=== PATIENT | female | born 2000 | race Caucasian/White ===

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

== ENCOUNTER 2022-12-04 09:42 | Emergency (ER) | payer BC ==
[~2022-12-04] VITALS: Ht 172 cm; Wt 62.0 kg
[~2022-12-04 09:42] MED LIST: FEXO-14 PO; HYOS0.1283 SL; ONDA4TAB11 SL; TOPI15CA6 PO
[2022-12-04 10:47] LABS: BILIRUBIN,URINE NEGATIVE (NEGATIVE); CLARITY,URINE CLEAR; GLUCOSE, URINE (UA) NEGATIVE (NEGATIVE); KETONES,URINE NEGATIVE (NEGATIVE); LEUKOCYTE ESTERASE ,URINE NEGATIVE (NEGATIVE); NITRITE,URINE NEGATIVE (NEGATIVE); PH,URINE 7.5 (5-9); PROTEIN,URINE NEGATIVE (NEGATIVE)
[2022-12-04 10:55] LABS: COLOR,URINE PALE YELLOW; WBC,URINE 0-2 /HPF
[2022-12-04 10:56] LABS: BACTERIA,URINE FEW /HPF
--- NOTE | 2022-12-04 12:04 | ED Abdominal Pain ---
General Chief Complaint: Abdominal/GI Problems Stated Complaint: KIDNEY STONES Nursing Triage Note: ARRIVED VIA AMB TO TRIAGE WITH COMPLAINTS OF RIGHT SIDED ABD PAIN X1 WEEK. HX OF KIDNEY STONES. STATES HER PRIMARY IN [place] STARTED HER ON FLOMAX. SHE IS OUT OF FLOMAX AT THIS TIME AND STILL HAVING PAIN. CALLED HER PRIMARY WHO TOLD HER TO COME TO THE ER. Source of Information: Patient Exam Limitations: No Limitations (WICHO ZEPEDA APRN) History of Present Illness Date Seen by Provider: Dec 04, 2022 Time Seen by Provider: 11:50 Initial Comments 22-year-old female presents to the ED with complaints right lower quadrant abdominal pain and bilateral lower back pain for the last week. States she was diagnosed with kidney stones in September, thinks she has another kidney stone. Complains of cramping abdominal pain with urination and nausea, especially with eating. Denies fevers, diarrhea, dysuria. Last menstrual cycle was 11/08. Denies vaginal bleeding or discharge. She has had an appendectomy. Past medical history includes POTS, factor V Leiden deficiency, asthma, migraines, functional digestive disorder. Currently takes dicyclomine, FD virgilio, IB virgilio, amitriptyline, fludrocortisone, mefenamic acid, hyoscyamine, Zofran, Brittney, Topamax, albuterol inhaler. (WICHO ZEPEDA APRN) Allergies and Home Medications Allergies Coded Allergies: Sulfa (Sulfonamide Antibiotics) (Verified Allergy, Unknown, 08/06/21) clindamycin (Verified Allergy, Unknown, 08/06/21) Patient Home Medication List Home Medication List Reviewed: Yes (WICHO ZEPEDA APRN) Fexofenadine HCl (Brittney Allergy) 60 Mg Tablet, 60 MG PO, (Reported) Entered as Reported by: AGGIE HOBSON on 08/06/21 0955 Hyoscyamine Sulfate (Levsin-Sl) 0.125 Mg Tab.subl, 1-2 TAB SL Q4H PRN for CRAMPS Prescribed by: ADIN FORD on 08/06/21 1239 Ondansetron (Ondansetron Odt) 4 Mg Tab.rapdis, 4 MG SL Q4H PRN for NAUSEA/VOMITING Prescribed by: ADIN FORD on 08/06/21 1239 Topiramate (Topamax) 15 Mg Cap.sprink, 15 MG PO, (Reported) Entered as Reported by: AGGIE HOBSON on 08/06/21 0955 Review of Systems Review of Systems Constitutional: see HPI (WICHO ZEPEDA APRN) Past Wiwypmx-Xtjjzc-Pygkjr Hx Patient Social History Tobacco Use?: No Substance use?: No Alcohol Use?: No (WICHO ZEPEDA APRN) Immunizations Up To Date First/Initial COVID19 Vaccinat: N/A (WICHO ZEPEDA APRN) Past Medical History Surgery/Hospitalization HX: PMH: POTS, FACTOR 5 LIDEN, ASTHMA, MIGRAINES SX: APPY, TONSILS/ADENOIDS, WISDOM TEETH, SINUS SX Last Menstrual Period: Nov 08, 2022 (WICHO ZEPEDA APRN) Physical Exam Vital Signs Vital Signs - First Documented 12/04/22 12/04/22 10:05 16:40 Temp 36.9 Pulse 96 Resp 16 B/P (MAP) 112/81 Pulse Ox 100 O2 Delivery Room Air (YOLY,CALOS K DO) Vital Signs Capillary Refill : Less Than 3 Seconds (WICHO ZEPEDA APRN) Height/Weight/BMI Height: '" Weight: lbs. oz. kg; 20.00 BMI Method: General Appearance: WD/WN, no apparent distress Neck: supple, normal inspection Respiratory: lungs clear, normal breath sounds, no respiratory distress, no accessory muscle use Cardiovascular: regular rate, rhythm, no edema, no gallop, no JVD, no murmur Gastrointestinal: normal bowel sounds, soft, tenderness (Bilateral lower quadrant) Extremities: normal range of motion, normal inspection Neurologic/Psychiatric: alert, normal mood/affect, oriented x 3 Skin: normal color, warm/dry (WICHO ZEPEDA APRN) Progress/Results/Core Measures Results/Orders Lab Results Laboratory Tests Test 12/04/22 10:19 12/04/22 12:10 Range/Units Urine Color PALE YELLOW Urine Clarity CLEAR Urine pH 7.5 5-9 Urine Specific [place] <=1.005 1.016-1.022 Urine Protein NEGATIVE NEGATIVE Urine Glucose (UA) NEGATIVE NEGATIVE Urine Ketones NEGATIVE NEGATIVE Urine Nitrite NEGATIVE NEGATIVE Urine Bilirubin NEGATIVE NEGATIVE Urine Urobilinogen 0.2 < = 1.0 MG/DL Urine Leukocyte Esterase NEGATIVE NEGATIVE Urine RBC (Auto) NEGATIVE NEGATIVE Urine RBC NONE /HPF Urine WBC 0-2 /HPF Urine Squamous Epithelial Cells 5-10 /HPF Urine Crystals NONE /LPF Urine Bacteria FEW H /HPF Urine Casts NONE /LPF Urine Mucus NEGATIVE /LPF Urine Culture Indicated NO White Blood Count 7.3 4.3-11.0 10^3/uL Red Blood Count 4.99 3.80-5.11 10^6/uL Hemoglobin 15.3 11.5-16.0 g/dL Hematocrit 43 35-52 % Mean Corpuscular Volume 87 80-99 fL Mean Corpuscular Hemoglobin 31 25-34 pg Mean Corpuscular Hemoglobin Concent 35 32-36 g/dL Red Cell Distribution Width 12.4 10.0-14.5 % Platelet Count 296 130-400 10^3/uL Mean Platelet Volume 9.7 9.0-12.2 fL Immature Granulocyte % (Auto) 0 % Neutrophils (%) (Auto) 70 42-75 % Lymphocytes (%) (Auto) 22 12-44 % Monocytes (%) (Auto) 6 0-12 % Eosinophils (%) (Auto) 1 0-10 % Basophils (%) (Auto) 1 0-10 % Neutrophils # (Auto) 5.2 1.8-7.8 10^3/uL Lymphocytes # (Auto) 1.6 1.0-4.0 10^3/uL Monocytes # (Auto) 0.4 0.0-1.0 10^3/uL Eosinophils # (Auto) 0.1 0.0-0.3 10^3/uL Basophils # (Auto) 0.1 0.0-0.1 10^3/uL Immature Granulocyte # (Auto) 0.0 0.0-0.1 10^3/uL Sodium Level 140 135-145 MMOL/L Potassium Level 3.8 3.6-5.0 MMOL/L Chloride Level 111 H 98-107 MMOL/L Carbon Dioxide Level 20 L 21-32 MMOL/L Anion Gap 9 5-14 MMOL/L Blood Urea Nitrogen 8 7-18 MG/DL Creatinine 0.76 0.60-1.30 MG/DL Estimat Glomerular Filtration Rate 115 BUN/Creatinine Ratio 11 Glucose Level 87 70-105 MG/DL Calcium Level 9.3 8.5-10.1 MG/DL Corrected Calcium 8.5-10.1 MG/DL Total Bilirubin 0.7 0.1-1.0 MG/DL Aspartate Amino Transf (AST/SGOT) 17 5-34 U/L Alanine Aminotransferase (ALT/SGPT) 15 0-55 U/L Alkaline Phosphatase 56 40-136 U/L Total Protein 7.6 6.4-8.2 GM/DL Albumin 4.9 H 3.2-4.5 GM/DL Amylase Level 47 25-125 U/L Lipase 41 8-78 U/L (YOLY,CALOS K DO) My Orders Orders - YOLY,CALOS K DO Ua Culture If Indicated (12/04/22 10:28) (YOLY,CALOS K DO) Vital Signs/I&O 12/04/22 12/04/22 10:05 16:40 Temp 36.9 Pulse 96 Resp 16 B/P (MAP) 112/81 Pulse Ox 100 O2 Delivery Room Air (YOLY,CALOS K DO) Progress Progress Note #1: Time: 12:05 Progress Note Patient seen and evaluated, sitting in recliner, no acute distress. Based on exam and symptoms, differential diagnosis includes but is not limited to appendicitis, nephrolithiasis, pyelonephritis. Work-up initiated including CBC, CMP, amylase, lipase, UA, urine , CT abdomen pelvis. Progress Note #2: Time: 13:20 Progress Note Labs reviewed. CBC grossly normal, WBC 7.3, hemoglobin 15.3. CBC shows elevated chloride at 111, CO2 slightly decreased at 20. UA negative for RBC, negative for infection. Waiting on read of CT scan. Progress Note #3: Time: 14:[address] reviewed. Shows possible fluid-filled bowel loops, cannot rule out hydrosalpinx. Ultrasound ordered. Progress Note #4: Time: 15:43 Progress Note Ultrasound reviewed. Negative for hydrosalpinx. Shows fluid-filled bowel loops. Will call Dr. Cohen, surgery. Progress Note #5: Time: 16:[address] Cohen evaluated patient. Feels as though she is okay to be discharged on a clear liquid diet. She can follow-up with him in the clinic if she continues to have symptoms. Patient given discharge instructions and return precautions. (WICHO ZEPEDA APRN) Diagnostic Imaging Diagonstic Imaging: CT Plain Films/CT/US/NM/MRI: abdomen, pelvis Comments [facility] [place] [facility] [employer] [facility] [place], [place] NAME: SRIDHAR THOMAS [facility] REC#: [id number] PT STATUS: REG ER : 2000 PHYSICIAN: WICHO ZEPEDA APRN ADMIT DATE: 12/04/22/ER Draft Date of Exam:12/04/22 CT ABDOMEN/PELVIS W PROCEDURE: CT abdomen and pelvis with contrast. TECHNIQUE: Multiple contiguous axial images were obtained through the abdomen and pelvis after administration of intravenous contrast. Auto Exposure Controls were utilized during the CT exam to meet ALARA standards for radiation dose reduction. All CT scans use one or more of the following dose optimizing techniques: automated exposure control, MA and/or KvP adjustment based on patient size and exam type or iterative reconstruction. INDICATION: Right-sided abdominal pain. COMPARISON: Comparison is made with prior CT from 08/11/2021. FINDINGS: Lung bases are clear. The liver and gallbladder are unremarkable. The pancreas and spleen are unremarkable. No adrenal mass is detected. No definite renal calculi or hydronephrosis is detected. Aorta is nonaneurysmal. There is a fluid-filled tubular structure in the right pelvis, likely representing a fluid-filled small bowel loop. The possibility of hydrosalpinx cannot be entirely excluded. There is a small left adnexal cyst measuring 2 cm. The bladder and uterus are unremarkable. There is no ascites. The appendix is not well visualized on this study but no inflammatory changes in the right lower quadrant are detected. IMPRESSION: Fluid-filled tubular structure in the right pelvis, likely a fluid-filled small bowel loop. Hydrosalpinx cannot be entirely excluded and pelvic ultrasound may be useful for further evaluation. The study is otherwise unremarkable. Dictated on workstation # [id number] Dict: 12/04/22 1317 Trans: 12/04/22 1348 AS6 [id number] Interpreted by: SHAKEEL EDWARD MD Electronically signed by: Diagonstic Imaging: Ultrasound Plain Films/CT/US/NM/MRI: pelvis Comments [facility] [place] [place] [place] NAME: SRIDHAR THOMAS [facility] REC#: [id number] PT STATUS: REG ER : 2000 PHYSICIAN: WICHO ZEPEDA APRN ADMIT DATE: 12/04/22/ER Draft Date of Exam:12/04/22 US PELVIC (NON OB)[id number] PROCEDURE: US PELVIC (NON OB) TECHNIQUE: Multiple real-time grayscale images were obtained over the pelvis in various projections transabdominally. INDICATION: Right lower quadrant pain. COMPARISON: CT abdomen and pelvis from earlier same day. FINDINGS: The uterus measures 7.3 x 4.2 x 4.3 cm and is anteverted. The myometrium is normal in echogenicity without discrete mass. The endometrium measures up to 1.0 cm where visualized, and is normal in echogenicity. The right ovary is not seen due to surrounding bowel gas. There is a fluid-filled bowel loop within the right adnexa. The left ovary measures measures 3.8 x 2.0 x 1.7 cm. Blood flow is present in the left ovary by color Doppler imaging. IMPRESSION: 1. No features of hydrosalpinx. 2. Fluid-filled bowel loop within the right adnexa accounts for the abnormality on CT. Dictated on workstation # [id number] Dict: 12/04/22 1521 Trans: 12/04/22 1536 AS6 [id number] Interpreted by: DELMA OCAMPO MD Electronically signed by: (WICHO EZPEDA APRN) Departure Communication (Admissions) Time/Spoke to Consulting Phy: 15:44 Dr. Cohen, surgery, called for consultation. (WICHO ZEPEDA APRN) Impression Primary Impression: Abdominal pain Disposition: 01 HOME, SELF-CARE Condition: Stable Departure-Patient Inst. Decision time for Depature: 16:29 (WICHO ZEPEDA APRN) Referrals: YANA COHEN DO NO,LOCAL PHYSICIAN (PCP) Primary Care Physician Patient Instructions: Clear Liquid Diet, Severe Abdominal Pain, Adult (DC) Add. Discharge Instructions: Stay on a clear liquid diet for the next couple of days. You can follow-up with the surgery clinic if you do not feel better. Return for worsening pain, recurrent vomiting, fever, or any other new, concerning, or worsening symptoms. All discharge instructions reviewed with patient and/or family. Voiced understanding. ATTENDING PHYSICIAN NOTE: I WAS PHYSICALLY PRESENT ER PHYSICIAN, BUT I WAS NOT INVOLVED IN ANY DECISION MAKING OR ANY CARE OF THIS PATIENT AND I AM NOT COLLABORATING PHYSICIAN. (CALOS FREDERICK DO) WICHO ZEPEDA APRN Dec 04, 2022 12:04 CALOS FREDERICK DO Dec 06, 2022 05:50
[2022-12-04 12:19] LABS: BASOPHILS # (AUTO) 0.1 10^3/uL (0.0-0.1); BASOPHILS % (AUTO) 1 % (0-10); EOSINOPHILS # (AUTO) 0.1 10^3/uL (0.0-0.3); EOSINOPHILS % (AUTO) 1 % (0-10); HEMATOCRIT 43 % (35-52); HEMOGLOBIN 15.3 g/dL (11.5-16.0); LYMPHOCYTES # (AUTO) 1.6 10^3/uL (1.0-4.0); LYMPHOCYTES % (AUTO) 22 % (12-44); MEAN CORPUSCULAR HEMOGLOBIN 31 pg (25-34); MEAN CORPUSCULAR HGB CONC 35 g/dL (32-36); MEAN CORPUSCULAR VOLUME 87 fL (80-99); MEAN PLATELET VOLUME 9.7 fL (9.0-12.2); MONOCYTES # (AUTO) 0.4 10^3/uL (0.0-1.0); MONOCYTES % (AUTO) 6 % (0-12); NEUTROPHILS # (AUTO) 5.2 10^3/uL (1.8-7.8); NEUTROPHILS % (AUTO) 70 % (42-75); PLATELET COUNT 296 10^3/uL (130-400); WHITE BLOOD COUNT 7.3 10^3/uL (4.3-11.0)
[2022-12-04 12:28] LABS: ALBUMIN 4.9 GM/DL (3.2-4.5); CHLORIDE 111 MMOL/L (98-107); POTASSIUM 3.8 MMOL/L (3.6-5.0); SODIUM 140 MMOL/L (135-145)
[2022-12-04 12:29] LABS: AMYLASE 47 U/L (25-125); CALCIUM 9.3 MG/DL (8.5-10.1)
[2022-12-04 12:30] LABS: GLUCOSE 87 MG/DL (70-105); TOTAL PROTEIN 7.6 GM/DL (6.4-8.2)
[2022-12-04] MEDS ORDERED: IOHEXOL 350 MG/ML 100 ML (OMNIPAQUE 350) VIAL IV ONE (12:30)
[2022-12-04] MEDS ORDERED: NS 100 ML (IVPB) BAG IV ONE (12:30)
[2022-12-04] MEDS ORDERED: HOLD METFORMIN - RECEIVED CONTRAST 20 ML VIAL IV SCH (12:30)
[2022-12-04 12:32] LABS: BILIRUBIN,TOTAL 0.7 MG/DL (0.1-1.0); CARBON DIOXIDE 20 MMOL/L (21-32)
[2022-12-04 12:34] LABS: ALKALINE PHOSPHATASE 56 U/L (40-136); CREATININE SERUM 0.76 MG/DL (0.60-1.30); GFR ESTIMATED 115
[2022-12-04 12:35] LABS: BUN/CREATININE RATIO 11
[2022-12-04 12:37] LABS: ALANINE AMINOTRANSFERASE 15 U/L (0-55)
[2022-12-04 12:38] LABS: LIPASE 41 U/L (8-78)
--- NOTE | 2022-12-04 13:49 | Diagnostic Imaging Report ---
PROCEDURE: CT abdomen and pelvis with contrast. TECHNIQUE: Multiple contiguous axial images were obtained through the abdomen and pelvis after administration of intravenous contrast. Auto Exposure Controls were utilized during the CT exam to meet ALARA standards for radiation dose reduction. All CT scans use one or more of the following dose optimizing techniques: automated exposure control, MA and/or KvP adjustment based on patient size and exam type or iterative reconstruction. INDICATION: Right-sided abdominal pain. COMPARISON: Comparison is made with prior CT from 08/11/2021. FINDINGS: Lung bases are clear. The liver and gallbladder are unremarkable. The pancreas and spleen are unremarkable. No adrenal mass is detected. No definite renal calculi or hydronephrosis is detected. Aorta is nonaneurysmal. There is a fluid-filled tubular structure in the right pelvis, likely representing a fluid-filled small bowel loop. The possibility of hydrosalpinx cannot be entirely excluded. There is a small left adnexal cyst measuring 2 cm. The bladder and uterus are unremarkable. There is no ascites. The appendix is not well visualized on this study but no inflammatory changes in the right lower quadrant are detected. IMPRESSION: Fluid-filled tubular structure in the right pelvis, likely a fluid-filled small bowel loop. Hydrosalpinx cannot be entirely excluded and pelvic ultrasound may be useful for further evaluation. The study is otherwise unremarkable. Dictated by: Dictated on workstation # [id number]
[2022-12-04] MEDS ORDERED: fentaNYL INJ 100 MCG/2 ML AMP IVP ONE (14:00)
--- NOTE | 2022-12-04 15:37 | Diagnostic Imaging Report ---
PROCEDURE: US PELVIC (NON OB) TECHNIQUE: Multiple real-time grayscale images were obtained over the pelvis in various projections transabdominally. INDICATION: Right lower quadrant pain. COMPARISON: CT abdomen and pelvis from earlier same day. FINDINGS: The uterus measures 7.3 x 4.2 x 4.3 cm and is anteverted. The myometrium is normal in echogenicity without discrete mass. The endometrium measures up to 1.0 cm where visualized, and is normal in echogenicity. The right ovary is not seen due to surrounding bowel gas. There is a fluid-filled bowel loop within the right adnexa. The left ovary measures measures 3.8 x 2.0 x 1.7 cm. Blood flow is present in the left ovary by color Doppler imaging. IMPRESSION: 1. No features of hydrosalpinx. 2. Fluid-filled bowel loop within the right adnexa accounts for the abnormality on CT. Dictated by: Dictated on workstation # [id number]
[2022-12-04 16:40] VITALS: BP 112/81
--- NOTE | 2022-12-04 16:53 | Consultation - Surgery ---
KEITH NAVARRO 12/04/22 1653: History of Present Illness History of Present Illness Patient Consulted On(kyler/time) 12/04/22 16:48 Date Seen by Provider: Dec 04, 2022 Time Seen by Provider: 16:48 History of Present Illness Sridhar Freeman is a 22yo female presenting with constant 5/10 RLQ abdominal pain w/o radiation for about a week with associated b/l lower back pain and nausea. Pt states that urination and eating aggravates the pain and rice pack heating pad alleviated pain. Pt states at times abdominal pain will increase significantly to where she will cry. Pt thought that it was due to kidney stone, due to having a past medical history of kidney stones in September and the lower back pain she is experiencing. Pt states she is not sexually active and last menses was 11/08. Allergies and Home Medications Allergies Coded Allergies: Sulfa (Sulfonamide Antibiotics) (Verified Allergy, Unknown, 08/06/21) clindamycin (Verified Allergy, Unknown, 08/06/21) Patient Home Medication List Home Medication List Reviewed: Yes Fexofenadine HCl (Brittney Allergy) 60 Mg Tablet, 60 MG PO, (Reported) Entered as Reported by: AGGIE HOBSON on 08/06/21 0955 Hyoscyamine Sulfate (Levsin-Sl) 0.125 Mg Tab.subl, 1-2 TAB SL Q4H PRN for CRAMPS Prescribed by: ADIN FORD on 08/06/21 1239 Ondansetron (Ondansetron Odt) 4 Mg Tab.rapdis, 4 MG SL Q4H PRN for NAUSEA/VOMITING Prescribed by: ADIN FORD on 08/06/21 1239 Topiramate (Topamax) 15 Mg Cap.sprink, 15 MG PO, (Reported) Entered as Reported by: AGGIE HOBSON on 08/06/21 0955 Past Avsdxyp-Bfoufv-Fwjrus Hx Patient Social History Smoking Status: Never a Smoker Alcohol Use?: No Surgeries Surgeries: Appendectomy, Tonsillectomy Respiratory Respiratory Disorders: Asthma Cardiovascular History of Cardiac Disorders: Yes (POTS) Neurological History of Neurological Disord: Yes Neurological Disorders: Headaches /Migraines Reproductive System Female Reproductive Disorders: Ovarian Cyst Gastrointestinal History of Gastrointestinal Di: Yes (Functional Digestive Disorder ) Blood Transfusions History of Blood Disorders: Yes (Factor V Leiden Def) Review of Systems-General Constitutional: No chills, No fever Cardiovascular: No chest pain, No palpitations Gastrointestinal: abdominal pain (RLQ), nausea Genitourinary: No dysuria Physical Exam-General Problems Physical Exam Vital Signs Vital Signs - First Documented 12/04/22 10:05 Temp 36.9 Pulse 96 Resp 16 Pulse Ox 100 O2 Delivery Room Air Capillary Refill : Less Than 3 Seconds General Appearance: no apparent distress HEENT: PERRL/EOMI, pharynx normal Respiratory: chest non-tender, no respiratory distress, no accessory muscle use Cardiovascular: normal peripheral pulses, no JVD Peripheral Pulses: 2+ Radial Pulses (R), 2+ Radial Pulses (L) Gastrointestinal: soft; No distended, No guarding; tenderness (Moderate Te nderness RLQ ) Neurologic/Psychiatric: alert, normal mood/affect, oriented x 3 Skin: normal color, warm/dry Lymphatic: No no adenopathy Data Review Labs Laboratory Tests 12/04/22 10:19: Urine Color PALE YELLOW, Urine Clarity CLEAR, Urine pH 7.5, Urine Specific [place] <=1.005, Urine Protein NEGATIVE, Urine Glucose (UA) NEGATIVE, Urine Ketones NEGATIVE, Urine Nitrite NEGATIVE, Urine Bilirubin NEGATIVE, Urine Urobilinogen 0.2, Urine Leukocyte Esterase NEGATIVE, Urine RBC (Auto) NEGATIVE, Urine RBC NONE, Urine WBC 0-2, Urine Squamous Epithelial Cells 5-10, Urine Crystals NONE, Urine Bacteria FEWH, Urine Casts NONE, Urine Mucus NEGATIVE, Urine Culture Indicated NO 12/04/22 12:10: White Blood Count 7.3, Red Blood Count 4.99, Hemoglobin 15.3, Hematocrit 43, Mean Corpuscular Volume 87, Mean Corpuscular Hemoglobin 31, Mean Corpuscular Hemoglobin Concent 35, Red Cell Distribution Width 12.4, Platelet Count 296, Mean Platelet Volume 9.7, Immature Granulocyte % (Auto) 0, Neutrophils (%) (Auto) 70, Lymphocytes (%) (Auto) 22, Monocytes (%) (Auto) 6, Eosinophils (%) (Auto) 1, Basophils (%) (Auto) 1, Neutrophils # (Auto) 5.2, Lymphocytes # (Auto) 1.6, Monocytes # (Auto) 0.4, Eosinophils # (Auto) 0.1, Basophils # (Auto) 0.1, Immature Granulocyte # (Auto) 0.0, Sodium Level 140, Potassium Level 3.8, Chloride Level 111H, Carbon Dioxide Level 20L, Anion Gap 9, Blood Urea Nitrogen 8, Creatinine 0.76, Estimat Glomerular Filtration Rate 115, BUN/Creatinine Ratio 11, Glucose Level 87, Calcium Level 9.3, Corrected Calcium , Total Bilirubin 0.7, Aspartate Amino Transf (AST/SGOT) 17, Alanine Aminotransferase (ALT/SGPT) 15, Alkaline Phosphatase 56, Total Protein 7.6, Albumin 4.9H, Amylase Level 47, Lipase 41 Radiology [facility], [place] NAME: SRIDHAR FREEMAN [facility] REC#: [id number] PT STATUS: REG ER : 2000 PHYSICIAN: CLAUDIA ZEPEDA APRN ADMIT DATE: 12/04/22/ER Draft Date of Exam:12/04/22 CT ABDOMEN/PELVIS W PROCEDURE: CT abdomen and pelvis with contrast. TECHNIQUE: Multiple contiguous axial images were obtained through the abdomen and pelvis after administration of intravenous contrast. Auto Exposure Controls were utilized during the CT exam to meet ALARA standards for radiation dose reduction. All CT scans use one or more of the following dose optimizing techniques: automated exposure control, MA and/or KvP adjustment based on patient size and exam type or iterative reconstruction. INDICATION: Right-sided abdominal pain. COMPARISON: Comparison is made with prior CT from 08/11/2021. FINDINGS: Lung bases are clear. The liver and gallbladder are unremarkable. The pancreas and spleen are unremarkable. No adrenal mass is detected. No definite renal calculi or hydronephrosis is detected. Aorta is nonaneurysmal. There is a fluid-filled tubular structure in the right pelvis, likely representing a fluid-filled small bowel loop. The possibility of hydrosalpinx cannot be entirely excluded. There is a small left adnexal cyst measuring 2 cm. The bladder and uterus are unremarkable. There is no ascites. The appendix is not well visualized on this study but no inflammatory changes in the right lower quadrant are detected. IMPRESSION: Fluid-filled tubular structure in the right pelvis, likely a fluid-filled small bowel loop. Hydrosalpinx cannot be entirely excluded and pelvic ultrasound may be useful for further evaluation. The study is otherwise unremarkable. Dictated on workstation # [id number] Dict: 12/04/22 1317 Trans: 12/04/22 1348 AS6 [id number] Interpreted by: SHAKEEL MCNEIL MD Electronically signed by: Angelita Imaging: Ultrasound Plain Films/CT/US/NM/MRI: pelvis Comments [facility], [place] NAME: SRIDHAR FREEMAN [facility] REC#: [id number] PT STATUS: REG ER : 2000 PHYSICIAN: CLAUDIA ZEPEDA APRN ADMIT DATE: 12/04/22/ER Draft Date of Exam:12/04/22 US PELVIC (NON OB)[id number] PROCEDURE: US PELVIC (NON OB) TECHNIQUE: Multiple real-time grayscale images were obtained over the pelvis in various projections transabdominally. INDICATION: Right lower quadrant pain. COMPARISON: CT abdomen and pelvis from earlier same day. FINDINGS: The uterus measures 7.3 x 4.2 x 4.3 cm and is anteverted. The myometrium is normal in echogenicity without discrete mass. The endometrium measures up to 1.0 cm where visualized, and is normal in echogenicity. The right ovary is not seen due to surrounding bowel gas. There is a fluid-filled bowel loop within the right adnexa. The left ovary measures measures 3.8 x 2.0 x 1.7 cm. Blood flow is present in the left ovary by color Doppler imaging. IMPRESSION: 1. No features of hydrosalpinx. 2. Fluid-filled bowel loop within the right adnexa accounts for the abnormality on CT. Dictated on workstation # [id number] Dict: 12/04/22 1521 Trans: 12/04/22 1536 AS6 [id number] Interpreted by: DELMA OCAMPO MD Electronically signed by: Assessment/Plan Assessment/Plan Assessment/Plan Gastroenteritis RLQ Abdominal pain Lower Back Pain Clears Liquid Diet couple days Follow-up with the surgery clinic if you do not feel better Return for worsening pain, recurrent vomiting, fever, or any other new, concerning, or worsening symptoms YANA COHEN DO 12/05/22 1903: History of Present Illness History of Present Illness History of Present Illness Consult requested by Claudia Zepeda for rlq abdominal pain. Patient is a 22 year old female presenting to the ED with constant right lower quadrant abdominal pain. Does not radiate anywhere. She rates it at 5/10. Heating pad helps alleviate the pain and urination and eating can aggravate it. Patient states she has history of simliar episodes in the past and also has recently had kidney stones. She is having bowel function. Occasional nausea. She notes previous appendectomy and was told had lots of adhesions. She had CT scan demonstrating fluid filled bowel loop but not other signifcant findings. U/s demonstrated the bowel loop no hydrosalpinx. Patient without emesis. Denies any gynecological symptoms. Allergies and Home Medications Allergies Coded Allergies: Sulfa (Sulfonamide Antibiotics) (Verified Allergy, Unknown, 08/06/21) clindamycin (Verified Allergy, Unknown, 08/06/21) Patient Home Medication List Home Medication List Reviewed: Yes Fexofenadine HCl (Brittney Allergy) 60 Mg Tablet, 60 MG PO, (Reported) Entered as Reported by: AGGIE HOBSON on 08/06/21 0955 Hyoscyamine Sulfate (Levsin-Sl) 0.125 Mg Tab.subl, 1-2 TAB SL Q4H PRN for CRAMPS Prescribed by: ADIN FORD on 08/06/21 1239 Ondansetron (Ondansetron Odt) 4 Mg Tab.rapdis, 4 MG SL Q4H PRN for NAUSEA/VOMITING Prescribed by: ADIN FORD on 08/06/21 1239 Topiramate (Topamax) 15 Mg Cap.sprink, 15 MG PO, (Reported) Entered as Reported by: AGGIE HOBSON on 08/06/21 0955 Past Fzmnlmy-Vhthru-Dcubok Hx Reviewed Nursing Assessment Reviewed/Agree w Nursing PMH: Yes Family Medical History Significant Family History: No Pertinent Family Hx Review of Systems-General Constitutional: No chills, No fever EENTM: No blurred vision, No double vision Respiratory: No cough, No dyspnea on exertion Cardiovascular: No chest pain, No palpitations Gastrointestinal: abdominal pain (RLQ), nausea; No vomiting Genitourinary: No decreased output, No discharge Musculoskeletal: back pain; No gout Skin: No change in color, No change in hair/nails Psychiatric/Neurological: Denies Anxiety, Denies Depressed, Denies Emotional Problems All Other Systems Reviewed Negative Unless Noted: Yes (Negative excepted noted.) Physical Exam-General Problems Physical Exam General Appearance: no apparent distress, thin HEENT: PERRL/EOMI, normal ENT inspection Neck: non-tender, supple Respiratory: chest non-tender, no respiratory distress, no accessory muscle use Cardiovascular: regular rate, rhythm, no JVD Gastrointestinal: soft; No distended, No guarding; tenderness (Minimal Tenderness RLQ ) Rectal: deferred Back: no CVA tenderness, no vertebral tenderness Extremities: non-tender, no pedal edema Neurologic/Psychiatric: alert, normal mood/affect, oriented x 3 Skin: normal color, warm/dry Lymphatic: no adenopathy Assessment/Plan Assessment/Plan Assessment/Plan RLQ Abdominal pain Gastroenteritis Lower Back Pain Clears Liquid Diet couple days for bowel rest Feel may be part of her functional bowel disorder or adhesions down in the rlq. Having bowel function. Feel will likely improve on its own. If worsens she should be reevaluated at that time which she understands. We discussed CT and U/s findings I reviewed with Dr. Mcneil radiological findings. Also discussed plan with Claudia Zepeda. Supervisory-Addendum Brief Verification & Attestation Participated in pt care: history, MDM, physical Personally performed: exam, history, MDM, supervision of care Care discussed with: Medical Student Procedures: n/a Results interpretation: Verified all documentation Verification and Attestation of Medical Student E/M Service A medical student performed and documented this service in my presence. I reviewed and verified all information documented by the medical student and made modifications to such information, when appropriate. I personally performed the physical exam and medical decision making. Yana Cohen, Dec 04, 2022,22:09 KEITH NAVARRO Dec 04, 2022 16:53 YANA COHEN DO Dec 05, 2022 19:03
== END 2022-12-04 16:42 | disposition home or self-care (01) ==
LOC: EDUNIT# 09:42 → ER 09:43
DX: R10.31 Right lower quadrant pain (principal); R10.32 Left lower quadrant pain; E87.8 Other disorders of electrolyte and fluid balance, not elsewhere classified; R79.81 Abnormal blood-gas level; Z90.49 Acquired absence of other specified parts of digestive tract; Z87.19 Personal history of other diseases of the digestive system; J45.909 Unspecified asthma, uncomplicated; Z79.51 Long term (current) use of inhaled steroids; Z86.69 Personal history of other diseases of the nervous system and sense organs; Z79.899 Other long term (current) drug therapy; Z28.310 Unvaccinated for COVID-19
CPT/HCPCS: 36415; 74177; 76856; 80053; 81000; 82150; 83690; 84703; 85025